=== PATIENT | male | born 1970 | race Caucasian/White ===

== ENCOUNTER 2024-04-13 00:59 | Inpatient (IN) | payer OTHER, MEDICAID ==
[~2024-04-13] VITALS: Ht 172.7 cm; Wt 85.5 kg
[2024-04-13] VITALS (13 sets, daily range): BP systolic 111–140; BP diastolic 48–83; PULSE 73–102; RESP 16–28; TEMP 97.2–98.4; O2SAT 97–99
[2024-04-13 01:26] LABS: BASOPHILS % 0.7 % (0.0-2.0); EOSINOPHILS % 3.4 % (0.0-5.0); HEMOGLOBIN. 16.6 g/dL (14.0-18.0); LYMPHOCYTES % 42.4 % (20.0-50.0); MEAN CORPUSCULAR HEMOGLOBIN 32.3 pg (28.0-32.0); MEAN CORPUSCULAR HGB CONC 33.9 g/dL (31.0-37.0); MEAN CORPUSCULAR VOLUME 95.3 fL (80.0-94.0); MEAN PLATELET VOLUME 7.8 fl (7.4-10.4); NEUTROPHILS % 45.5 % (40.0-76.0); PLATELET 327 x1000/uL (130-400); RED BLOOD CELL COUNT 5.14 mill/uL (4.7-6.1); RED CELL DISTRIBUTION WIDTH 13.1 % (11.6-14.6); WHITE BLOOD COUNT 10.4 x1000/uL (4.5-11.0)
[2024-04-13 01:35] LABS: CARBON DIOXIDE 22 mEq/L (21-32); CHLORIDE 104 mEq/L (98-107); POTASSIUM 3.6 mEq/L (3.5-5.1); SODIUM 138 mEq/L (136-145)
[2024-04-13 01:36] LABS: CALCIUM 8.9 mg/dL (8.7-10.4)
[2024-04-13 01:41] LABS: GLUCOSE 173 mg/dL (70-105); UREA NITROGEN BLOOD 9 mg/dL (9-23)
[2024-04-13] MEDS: NITROGLYCERIN 50MG PREMIX 250 ML IV ONE ×2 (02:09→02:41)
[2024-04-13 02:18] LABS: TROPONIN I HIGH SENSITIVITY 65 ng/L (3.0-53)
[2024-04-13] MEDS: CEFTRIAXONE 2GM/50ML 50 ML IV ONE (02:45)
[2024-04-13 02:55] LABS: INR 0.9; PARTIAL THROMBOPLASTIN TIME 27.3 sec (23.4-31.0); PROTHROMBIN TIME 10.5 sec (9.6-11.0)
[2024-04-13] MEDS: AZITHROMYCIN 500MG/250ML 250 ML IV STA (03:01)
[2024-04-13] MEDS: METHYLPREDNISOLONE SOD SUCC 125MG/2ML (ACT-O-VIAL) IV ONE (03:16)
[2024-04-13] MEDS: IPRATROPIUM/ALBUTEROL 0.5-3(2.5)MG/3ML NEB HHN ONE (03:23)
[2024-04-13] MEDS: ALBUTEROL (0.083%) 2.5MG/3ML NEB HHN ONE (03:24)
[2024-04-13 04:02] LABS: TROPONIN I HIGH SENSITIVITY 595 ng/L (3.0-53)
[2024-04-13 04:02] LABS: LACTIC ACID 4.5 mmol/L (0.4-2.0)
[2024-04-13 04:58] LABS: TROPONIN I HIGH SENSITIVITY 1127 ng/L (3.0-53)
[2024-04-13] MEDS ORDERED: MAGNESIUM/ALUMINUM HYDROXIDE/SIMETHICONE 30ML UDC PO PRN (05:00)
[2024-04-13] MEDS ORDERED: IPRATROPIUM/ALBUTEROL 0.5-3(2.5)MG/3ML NEB HHN PRN (05:00)
[2024-04-13] MEDS ORDERED: GUAIFENESIN 200MG/10ML SUGAR FREE UDC PO PRN (05:00)
[2024-04-13] MEDS ORDERED: DOCUSATE SODIUM 100MG CAPSULE PO PRN (05:00)
[2024-04-13] MEDS ORDERED: ONDANSETRON HCL 4MG/2ML INJ IV PRN (05:00)
[2024-04-13] MEDS ORDERED: HYDRALAZINE 20MG/ML VIAL IV PRN (05:15)
[2024-04-13] MEDS ORDERED: DEXTROSE 50% WATER 50ML SYRINGE IV PRN (05:15)
[2024-04-13 05:38] LABS: TRIGLYCERIDE 164 mg/dL (0-150)
[2024-04-13 05:39] LABS: LDL CHOLESTEROL 164 mg/dL (5-100)
[2024-04-13 05:40] LABS: CHOLESTEROL 207 mg/dL (<200); HDL CHOLESTEROL 44 mg/dL (>55); PHOSPHORUS 5.7 mg/dL (2.5-4.9)
[2024-04-13 05:42] LABS: T4 FREE 0.99 ng/dL (0.89-1.76); THYROID STIMULATING HORMONE 1.63 uIU/mL (0.55-4.78)
[2024-04-13 05:43] LABS: FOLIC ACID (FOLATE) SERUM > 20.00 ng/mL (>5.38)
[2024-04-13 05:44] LABS: VITAMIN B12 SERUM 423 pg/mL (211-911)
[2024-04-13] MEDS ORDERED: ASPIRIN 81MG TABLET PO ONE (06:00)
[2024-04-13] MEDS ORDERED: NITROGLYCERIN 0.4MG TABLET SL SL PRN (06:00)
[2024-04-13] MEDS: ENOXAPARIN 120MG/0.8ML SYR SUBCUT NR (06:25)
[2024-04-13] MEDS: CLOPIDOGREL 75MG TABLET PO NR (06:26)
[2024-04-13] MEDS: ASPIRIN 325MG EC TABLET PO NR (06:26)
[2024-04-13] MEDS: MAGNESIUM 2 G PREMIX 50 ML IV NR (06:26)
[2024-04-13] MEDS: ENOXAPARIN 120MG/0.8ML SYR SUBCUT ONE (06:30)
[2024-04-13] MEDS: IPRATROPIUM/ALBUTEROL 0.5-3(2.5)MG/3ML NEB HHN SCH (07:45)
[2024-04-13] MEDS: BLOOD SUGAR DIAGNOSTIC STRIP TEST SCH (08:18)
[2024-04-13 08:24] LABS: BG BASE EXCESS -2.3 mmol/L (-2.0-2.0); BG CARBOXYHEMOGLOBIN 1.1 % (0.5-1.5); BG DEOXYHEMOGLOBIN 4.5 % (0.0-5.0); BG FRACTION INSPIRED OXYGEN 36; BG HCO3 ACT 22.9 mmol/L (22.0-26.0); BG METHEMOGLOBIN 0.4 % (0.0-1.5); BG OXYGEN SATURATION 95.4 % (92.0-98.5); BG PCO2 40.9 mmHg (35.0-45.0); BG PH 7.366 (7.350-7.450); BG PO2 73.3 mmHg (75.0-100.0); BG SAMPLE SITE RIGHT RADIAL; BG TOTAL HEMOGLOBIN 17.1 g/dL (12.0-18.0); BG VENT MODE NASAL CANNULA
[2024-04-13] MEDS: INSULIN LISPRO 100 UNITS/ML SUBCUT SCH (08:25)
[2024-04-13 08:27] LABS: CLARITY URINE CLEAR (CLEAR); COLOR URINE YELLOW (YELLOW); GLUCOSE URINE NEGATIVE (NEGATIVE); KETONES URINE TRACE (NEGATIVE); LEUKOCYTE ESTERASE URINE NEGATIVE (NEGATIVE); NITRITE URINE NEGATIVE (NEGATIVE); OCCULT BLOOD URINE NEGATIVE (NEGATIVE); PH URINE 5.5 (4.5-8.0); PROTEIN URINE 3+ (NEGATIVE); SPECIFIC GRAVITY URINE 1.016 (1.005-1.030)
[2024-04-13] MEDS: FAMOTIDINE 20MG/2ML VIAL IV SCH (08:28)
[2024-04-13 08:42] LABS: CREATINE KINASE MB FRACTION 16.7 ng/mL (0.5-3.6)
[2024-04-13 08:43] LABS: BACTERIA URINE NONE SEEN; RBC URINE 0-2 /hpf (0-2); SQUAMOUS EPITHELIAL CELL URINE RARE /lpf (RARE/1+); WBC URINE 0-2 /hpf (0-2); YEAST URINE NONE SEEN
[2024-04-13 08:47] LABS: *AMPHETAMINES SCREEN URINE PRESUMPTIVE POSITIVE (NEGATIVE)
[2024-04-13 08:53] LABS: *BARBITURATES SCREEN URINE NEGATIVE (NEGATIVE)
[2024-04-13 08:54] LABS: *BENZODIAZEPINES SCREEN URINE NEGATIVE (NEGATIVE); *COCAINE SCREEN URINE NEGATIVE (NEGATIVE); METHADONE URINE SCREEN NEGATIVE (NEGATIVE)
[2024-04-13 08:55] LABS: CANNABINOID URINE SCREEN PRESUMPTIVE POSITIVE (NEGATIVE); ECSTASY MDMA SCREEN URINE CONF.TEST INDICATED (NEGATIVE); OPIATES URINE SCREEN NEGATIVE (NEGATIVE); PHENCYCLIDINE URINE SCREEN NEGATIVE (NEGATIVE)
[2024-04-13] MEDS: CLONIDINE 0.1MG TABLET PO PRN (10:03)
[2024-04-13] MEDS: AMLODIPINE 5MG TABLET PO NR (12:15)
[2024-04-13] MEDS ORDERED: METF-416 MT (14:31)
[2024-04-13] MEDS ORDERED: AMLO10TA80 MT (14:31)
[2024-04-13] MEDS: HYDRALAZINE HCL 25MG TABLET PO SCH (15:14)
[2024-04-13] MEDS: ATORVASTATIN CALCIUM 40MG TABLET PO SCH (21:16)
[2024-04-13] MEDS: ENOXAPARIN 150MG/ML SYR SUBCUT SCH (21:17)
[2024-04-13 21:34] LABS: CREATINE KINASE MB FRACTION 8.8 ng/mL (0.5-3.6)
[2024-04-13 21:48] LABS: HEPATITIS B SURFACE ANTIGEN NEGATIVE (Negative)
[2024-04-13 22:09] LABS: HEPATITIS C AB NON REACTIVE (Neg) (Negative)
[2024-04-14] VITALS (17 sets, daily range): BP systolic 99–162; BP diastolic 52–99; PULSE 92–117; RESP 15–29; TEMP 97.2–101; O2SAT 99
[2024-04-14 02:30] LABS: CREATINE KINASE MB FRACTION 6.7 ng/mL (0.5-3.6)
[2024-04-14 02:31] LABS: CREATINE KINASE 118 IU/L (46-171)
[2024-04-14 02:34] LABS: TROPONIN I HIGH SENSITIVITY 1029 ng/L (3.0-53)
[2024-04-14 04:18] LABS: CHLORIDE 103 mEq/L (98-107); SODIUM 134 mEq/L (136-145)
[2024-04-14 04:21] LABS: CALCIUM 8.9 mg/dL (8.7-10.4); CARBON DIOXIDE 20 mEq/L (21-32)
[2024-04-14 04:26] LABS: CREATININE 1.1 mg/dL (0.6-1.3); GLUCOSE 226 mg/dL (70-105); UREA NITROGEN BLOOD 19 mg/dL (9-23)
[2024-04-14 04:28] LABS: PHOSPHORUS 3.4 mg/dL (2.5-4.9)
[2024-04-14] MEDS: HYDRALAZINE HCL 100MG TABLET PO SCH (05:26)
[2024-04-14 07:26] LABS: BASOPHILS % 0.4 % (0.0-2.0); HEMATOCRIT. 44.1 % (42.0-52.0); HEMOGLOBIN. 15.1 g/dL (14.0-18.0); LYMPHOCYTES % 10.7 % (20.0-50.0); MEAN CORPUSCULAR HEMOGLOBIN 31.9 pg (28.0-32.0); MEAN CORPUSCULAR HGB CONC 34.2 g/dL (31.0-37.0); MEAN CORPUSCULAR VOLUME 93.2 fL (80.0-94.0); MONOCYTES % 7.1 % (2.0-8.0); NEUTROPHILS % 81.8 % (40.0-76.0); PLATELET 281 x1000/uL (130-400); RED BLOOD CELL COUNT 4.73 mill/uL (4.7-6.1); WHITE BLOOD COUNT 11.2 x1000/uL (4.5-11.0)
[2024-04-14] MEDS: AMLODIPINE 10MG TABLET PO SCH (09:29)
[2024-04-14] MEDS: ACETAMINOPHEN 325MG TABLET PO PRN (11:02)
[2024-04-14] MEDS ORDERED: IOHEXOL-350 100 ML BOTTLE ONE (11:54)
[2024-04-14] MEDS: INSULIN GLARGINE 100 UNITS/ML SUBCUT SCH (21:56)
[2024-04-15] VITALS (19 sets, daily range): BP systolic 105–154; BP diastolic 55–85; PULSE 87–135; RESP 15–27; TEMP 97.9–100; O2SAT 96–100
[2024-04-15] MEDS: LORAZEPAM 1MG TABLET PO PRN (01:03)
[2024-04-15] MEDS: LORAZEPAM 2MG/ML INJ IV NR (04:30)
[2024-04-15 06:54] LABS: BASOPHILS % 0.6 % (0.0-2.0); HEMATOCRIT. 42.1 % (42.0-52.0); HEMOGLOBIN. 14.8 g/dL (14.0-18.0); LYMPHOCYTES % 17.2 % (20.0-50.0); MEAN CORPUSCULAR HEMOGLOBIN 32.5 pg (28.0-32.0); MEAN CORPUSCULAR HGB CONC 35.3 g/dL (31.0-37.0); MEAN CORPUSCULAR VOLUME 92.1 fL (80.0-94.0); MEAN PLATELET VOLUME 8.2 fl (7.4-10.4); MONOCYTES % 11.9 % (2.0-8.0); NEUTROPHILS % 70.3 % (40.0-76.0); PLATELET 234 x1000/uL (130-400); RED BLOOD CELL COUNT 4.57 mill/uL (4.7-6.1); RED CELL DISTRIBUTION WIDTH 12.8 % (11.6-14.6); WHITE BLOOD COUNT 7.4 x1000/uL (4.5-11.0)
[2024-04-15 07:03] LABS: CALCIUM 8.9 mg/dL (8.7-10.4); CHLORIDE 98 mEq/L (98-107); POTASSIUM 3.9 mEq/L (3.5-5.1); SODIUM 130 mEq/L (136-145)
[2024-04-15 07:04] LABS: CARBON DIOXIDE 27 mEq/L (21-32)
[2024-04-15 07:09] LABS: GLUCOSE 149 mg/dL (70-105); UREA NITROGEN BLOOD 17 mg/dL (9-23)
[2024-04-15] MEDS ORDERED: LORAZEPAM 2MG/ML INJ IV PRN (08:00)
[2024-04-15] MEDS: ENOXAPARIN 80MG/0.8ML SYR SUBCUT SCH (21:18)
[2024-04-16] VITALS (15 sets, daily range): BP systolic 102–139; BP diastolic 57–82; PULSE 98–115; RESP 11–24; TEMP 97.5–98.2; O2SAT 95–100
[2024-04-16 05:22] LABS: CHLORIDE 98 mEq/L (98-107); POTASSIUM 3.9 mEq/L (3.5-5.1); SODIUM 129 mEq/L (136-145)
[2024-04-16 05:23] LABS: CALCIUM 9.1 mg/dL (8.7-10.4); CARBON DIOXIDE 24 mEq/L (21-32)
[2024-04-16 05:28] LABS: BASOPHILS % 0.4 % (0.0-2.0); CREATININE 0.8 mg/dL (0.6-1.3); EOSINOPHILS % 0.5 % (0.0-5.0); GLUCOSE 144 mg/dL (70-105); HEMATOCRIT. 41.4 % (42.0-52.0); HEMOGLOBIN. 14.6 g/dL (14.0-18.0); LYMPHOCYTES % 17.1 % (20.0-50.0); MEAN CORPUSCULAR HEMOGLOBIN 32.2 pg (28.0-32.0); MEAN CORPUSCULAR HGB CONC 35.3 g/dL (31.0-37.0); MEAN CORPUSCULAR VOLUME 91.3 fL (80.0-94.0); MEAN PLATELET VOLUME 7.6 fl (7.4-10.4); MONOCYTES % 12.6 % (2.0-8.0); NEUTROPHILS % 69.4 % (40.0-76.0); PLATELET 242 x1000/uL (130-400); RED BLOOD CELL COUNT 4.53 mill/uL (4.7-6.1); RED CELL DISTRIBUTION WIDTH 12.6 % (11.6-14.6); UREA NITROGEN BLOOD 11 mg/dL (9-23); WHITE BLOOD COUNT 8.7 x1000/uL (4.5-11.0)
[2024-04-16] MEDS ORDERED: LIP40 PO (09:34)
[2024-04-16] MEDS ORDERED: HYDR100T26 PO (09:34)
[2024-04-16] MEDS ORDERED: LORAZEPAM 1MG TABLET PO PRN (20:00)
== END 2024-04-16 17:45 | disposition home or self-care (01) | DRG 812 ==
LOC: ER 00:59 → EDBD 00:59 → 5EST 02:58 → EDBEDREQTM 03:02 → EDBEDREQ 03:02 → EDBEDREQSVC 10:26
PROVIDERS: ADMIT Internal Medicine; ATTEND Internal Medicine
PROC: 5A09357 Assistance with Respiratory Ventilation, Less than 24 Consecutive Hours, Continuous Positive Airway Pressure (ICD-10-PCS; principal; 2024-04-13)
DX: T43.621A Poisoning by amphetamines, accidental (unintentional), initial encounter (principal); J96.01 Acute respiratory failure with hypoxia; I21.4 Non-ST elevation (NSTEMI) myocardial infarction; I50.1 Left ventricular failure, unspecified; E78.5 Hyperlipidemia, unspecified; E87.20 Acidosis, unspecified; E83.39 Other disorders of phosphorus metabolism; I11.0 Hypertensive heart disease with heart failure; E11.65 Type 2 diabetes mellitus with hyperglycemia; E11.9 Type 2 diabetes mellitus without complications; T43.625A Adverse effect of amphetamines, initial encounter; E83.42 Hypomagnesemia; F15.10 Other stimulant abuse, uncomplicated; F17.210 Nicotine dependence, cigarettes, uncomplicated; I16.1 Hypertensive emergency; I25.10 Atherosclerotic heart disease of native coronary artery without angina pectoris; J44.9 Chronic obstructive pulmonary disease, unspecified; Z79.84 Long term (current) use of oral hypoglycemic drugs; Y92.89 Other specified places as the place of occurrence of the external cause
CPT/HCPCS: 36415; 36600; 71045; 71275; 80048; 80061; 80305; 81003; 82375; 82550; 82553; 82607; 82746; 82805; 82962; 83036; 83605; 83735; 83880; 84100; 84145; 84439; 84443; 84484; 85025; 86705; 87340; 93005; 93306; 93970; 94640; 94660; 99291; C1893; J0456; J0696; J1650; J1815; J2060; J2930; J3475; J3490; Q9967

== ENCOUNTER 2025-09-16 16:19 | Inpatient (IN) | payer MEDICAID, OTHER ==
[~2025-09-16] VITALS: Ht 175.3 cm; Wt 73.1 kg
[~2025-09-16 16:19] MED LIST: AMLO10TA80 MT; HYDR100T11 PO; LIP40 PO; METF-416 MT
[2025-09-16 16:43] VITALS: PULSE 117; RESP 19; O2SAT 99
[2025-09-16] MEDS: NALOXONE HCL 1MG/ML 2ML VIAL ONE (16:43)
[2025-09-16] MEDS: PROPOFOL 10MG/ML 100ML 100 ML IV SCH (16:44)
[2025-09-16 16:48] LABS: BASOPHILS % 0.6 % (0.0-2.0); EOSINOPHILS % 1.7 % (0.0-5.0); HEMATOCRIT. 49.8 % (42.0-52.0); HEMOGLOBIN. 16.2 g/dL (14.0-18.0); LYMPHOCYTES % 49.1 % (20.0-50.0); MEAN PLATELET VOLUME 8.1 fl (7.4-10.4); MONOCYTES % 7.6 % (2.0-8.0); NEUTROPHILS % 41.0 % (40.0-76.0); PLATELET 355 x1000/uL (130-400); RED BLOOD CELL COUNT 4.98 mill/uL (4.7-6.1); RED CELL DISTRIBUTION WIDTH 12.5 % (11.6-14.6)
[2025-09-16 17:00] LABS: INR 0.9
[2025-09-16 17:07] LABS: CREATININE 1.3 mg/dL (0.6-1.3); UREA NITROGEN BLOOD 13 mg/dL (9-23)
[2025-09-16 17:09] LABS: ASPARTATE AMINOTRANSFERASE 48 IU/L (<34); BILIRUBIN DIRECT < 0.1 mg/dL (<=3.0); BILIRUBIN TOTAL 0.3 mg/dL (0.1-1.0); PROTEIN TOTAL 7.7 g/dL (6.0-8.3)
[2025-09-16 17:20] LABS: TROPONIN I HIGH SENSITIVITY 136 ng/L (3.0-53)
[2025-09-16] MEDS: NICARDIPINE 50 MG in SODIUM CHLORIDE 0.9% 230 ML IV PRN (17:33)
[2025-09-16] MEDS: ENOXAPARIN 60MG/0.6ML SYR SUBCUT ONE (18:18)
[2025-09-16] MEDS: SODIUM CHLORIDE 0.9% 1,000 ML IV ONE ×2 (18:22→21:24)
[2025-09-16] MEDS: CEFTRIAXONE 1GM/50ML 50 ML IV ONE (18:38)
[2025-09-16 19:05] LABS: BG BASE EXCESS -2.5 mmol/L (-2.0-3.0); BG CARBOXYHEMOGLOBIN 2.6 % (0.5-1.5); BG DEOXYHEMOGLOBIN 0.5 % (0.0-5.0); BG FRACTION INSPIRED OXYGEN 100; BG HCO3 ACT 23.5 mmol/L (21.0-28.0); BG METHEMOGLOBIN 0.3 % (0.5-1.5); BG OXYGEN SATURATION 99.5 % (94.0-98.0); BG OXYHEMOGLOBIN 96.6 % (94.0-98.0); BG PCO2 45.1 mmHg (35.0-48.0); BG PEEP (cmH2O) 5.0 cmH2O; BG PH 7.335 (7.350-7.450); BG PO2 406.5 mmHg (83.0-108.0); BG SAMPLE SITE RIGHT RADIAL; BG TIDAL VOLUME(mL) 500.0 mL; BG TOTAL HEMOGLOBIN 15.9 g/dL (13.5-17.5); BG VENT MODE VENT - AC; BG VENT RATE 18.0 set
[2025-09-16 19:28] VITALS: PULSE 86; RESP 18; O2SAT 100
[2025-09-16 19:59] LABS: TROPONIN I HIGH SENSITIVITY 586 ng/L (3.0-53)
[2025-09-16] MEDS: PROPOFOL 10MG/ML 100ML 100 ML IV PRN (20:04)
[2025-09-16] MEDS ORDERED: CLONIDINE 0.1MG TABLET PO PRN (21:00)
[2025-09-16] MEDS ORDERED: ACETAMINOPHEN 650MG/20.3ML UDC GT PRN (21:00)
[2025-09-16] MEDS ORDERED: IPRATROPIUM/ALBUTEROL 0.5-3(2.5)MG/3ML NEB HHN PRN (21:00)
[2025-09-16] MEDS ORDERED: ONDANSETRON HCL 4MG/2ML INJ IV PRN (21:00)
[2025-09-16] MEDS ORDERED: FENTANYL 2500MCG/250ML PMX 250 ML IV PRN (21:00)
[2025-09-16] MEDS ORDERED: DOCUSATE SODIUM 100MG CAPSULE PO PRN (21:00)
[2025-09-16] MEDS: PIPERACILLIN/TAZO 3.375G/50ML 50 ML IV SCH (21:13)
[2025-09-16] MEDS ORDERED: DEXTROSE 50% WATER 50ML SYRINGE IV PRN (21:15)
[2025-09-16] MEDS: IPRATROPIUM/ALBUTEROL 0.5-3(2.5)MG/3ML NEB NEB SCH (21:16)
[2025-09-16] MEDS: ASPIRIN 81MG TABLET NG ONE (21:30)
[2025-09-16] MEDS ORDERED: PIPERACILLIN/TAZO 3.375G/50ML 50 ML IV SCH (22:00)
[2025-09-16] MEDS ORDERED: PROPOFOL 10MG/ML 100ML 100 ML IV PRN (22:00)
[2025-09-16] MEDS: VANCOMYCIN 1.25GM/250ML 250 ML IV NR (22:17)
[2025-09-16] MEDS: BLOOD SUGAR DIAGNOSTIC STRIP TEST SCH (22:23)
[2025-09-16 22:27] LABS: CREATINE KINASE MB FRACTION 5.5 ng/mL (0.5-3.6)
[2025-09-16 22:31] LABS: VITAMIN B12 SERUM 504 pg/mL (211-911)
[2025-09-16] MEDS: INSULIN LISPRO 100 UNITS/ML SUBCUT SCH (22:31)
[2025-09-16 22:32] LABS: PHOSPHORUS 3.0 mg/dL (2.5-4.9)
[2025-09-16 22:36] LABS: CLARITY URINE CLEAR (CLEAR); COLOR URINE YELLOW (YELLOW); GLUCOSE URINE 3+ (NEGATIVE); KETONES URINE NEGATIVE (NEGATIVE); LEUKOCYTE ESTERASE URINE NEGATIVE (NEGATIVE); NITRITE URINE NEGATIVE (NEGATIVE); OCCULT BLOOD URINE NEGATIVE (NEGATIVE); PH URINE 6.0 (4.5-8.0); PROTEIN URINE 2+ (NEGATIVE); SPECIFIC GRAVITY URINE 1.058 (1.005-1.030); UROBILINOGEN URINE 1.0 E.U./dL (0.2-1.0)
[2025-09-16 22:39] LABS: TROPONIN I HIGH SENSITIVITY 2761 ng/L (3.0-53)
[2025-09-16 22:50] LABS: FOLIC ACID (FOLATE) SERUM 16.95 ng/mL (>5.38)
[2025-09-16 22:55] LABS: BACTERIA URINE NONE SEEN; RBC URINE NONE SEEN /hpf (0-2); SQUAMOUS EPITHELIAL CELL URINE RARE /lpf (RARE/1+); WBC URINE 0-2 /hpf (0-2)
[2025-09-16 23:04] VITALS: PULSE 79; RESP 18; O2SAT 98
[2025-09-16 23:06] LABS: *AMPHETAMINES SCREEN URINE PRESUMPTIVE POSITIVE (NEGATIVE)
[2025-09-16 23:07] LABS: *BARBITURATES SCREEN URINE NEGATIVE (NEGATIVE); *BENZODIAZEPINES SCREEN URINE NEGATIVE (NEGATIVE); *COCAINE SCREEN URINE NEGATIVE (NEGATIVE); CANNABINOID URINE SCREEN NEGATIVE (NEGATIVE); ECSTASY MDMA SCREEN URINE NEGATIVE (NEGATIVE); METHADONE URINE SCREEN NEGATIVE (NEGATIVE); OPIATES URINE SCREEN NEGATIVE (NEGATIVE); PHENCYCLIDINE URINE SCREEN NEGATIVE (NEGATIVE)
[2025-09-17] VITALS (61 sets, daily range): BP systolic 111–158; BP diastolic 67–96; PULSE 72–85; RESP 0–21; TEMP 36.7–36.8072; O2SAT 99–100
[2025-09-17] MEDS: PANTOPRAZOLE SODIUM 40 MG/VIAL IV SCH (01:11)
[2025-09-17] MEDS: ENOXAPARIN 80MG/0.8ML SYR SUBCUT SCH (06:15)
[2025-09-17] MEDS: POTASSIUM CHLORIDE 20MEQ TABLET SR PO NR (06:15)
[2025-09-17 06:38] LABS: BASOPHILS % 0.3 % (0.0-2.0); EOSINOPHILS % 0.5 % (0.0-5.0); HEMATOCRIT. 40.9 % (42.0-52.0); HEMOGLOBIN. 14.0 g/dL (14.0-18.0); LYMPHOCYTES % 11.6 % (20.0-50.0); MEAN PLATELET VOLUME 8.3 fl (7.4-10.4); MONOCYTES % 6.1 % (2.0-8.0); NEUTROPHILS % 81.5 % (40.0-76.0); PLATELET 281 x1000/uL (130-400); RED BLOOD CELL COUNT 4.30 mill/uL (4.7-6.1); RED CELL DISTRIBUTION WIDTH 12.1 % (11.6-14.6)
[2025-09-17 07:06] LABS: CREATINE KINASE MB FRACTION 5.7 ng/mL (0.5-3.6)
[2025-09-17 07:10] LABS: T4 FREE 1.01 ng/dL (0.89-1.76)
[2025-09-17 07:11] LABS: CREATININE 0.8 mg/dL (0.6-1.3); TRIGLYCERIDE 529 mg/dL (0-150); UREA NITROGEN BLOOD 15 mg/dL (9-23)
[2025-09-17 07:12] LABS: LDL CHOLESTEROL 123 mg/dL (5-100)
[2025-09-17 07:13] LABS: ASPARTATE AMINOTRANSFERASE 40 IU/L (<34); BILIRUBIN TOTAL 0.3 mg/dL (0.1-1.0); PHOSPHORUS 2.3 mg/dL (2.5-4.9)
[2025-09-17 07:14] LABS: PROTEIN TOTAL 5.9 g/dL (6.0-8.3)
[2025-09-17 07:32] LABS: TROPONIN I HIGH SENSITIVITY 4618 ng/L (3.0-53)
[2025-09-17] MEDS ORDERED: VANCOMYCIN 750MG PREMIX 150 ML IV SCH (08:00)
[2025-09-17 08:46] LABS: BG BASE EXCESS -0.9 mmol/L (-2.0-3.0); BG CARBOXYHEMOGLOBIN 0.6 % (0.5-1.5); BG DEOXYHEMOGLOBIN 1.4 % (0.0-5.0); BG FRACTION INSPIRED OXYGEN 40; BG HCO3 ACT 22.7 mmol/L (21.0-28.0); BG METHEMOGLOBIN 0.3 % (0.5-1.5); BG OXYGEN SATURATION 98.6 % (94.0-98.0); BG OXYHEMOGLOBIN 97.7 % (94.0-98.0); BG PCO2 34.9 mmHg (35.0-48.0); BG PEEP (cmH2O) 5.0 cmH2O; BG PH 7.432 (7.350-7.450); BG PO2 119.1 mmHg (83.0-108.0); BG SAMPLE SITE RIGHT RADIAL; BG TIDAL VOLUME(mL) 500.0 mL; BG TOTAL HEMOGLOBIN 14.8 g/dL (13.5-17.5); BG VENT MODE VENT - AC; BG VENT RATE 18.0 set
[2025-09-17] MEDS: PROPOFOL 10MG/ML 100ML 100 ML IV SCH (09:06)
[2025-09-17] MEDS ORDERED: POTASSIUM CHLORIDE 20MEQ/PACKET NG ONE (09:30)
[2025-09-17] MEDS: ASPIRIN 81MG TABLET NG SCH (09:33)
[2025-09-17] MEDS: METHYLPREDNISOLONE SOD SUCC 40MG/ML (ACT-O-VIAL) IV SCH (09:34)
[2025-09-17] MEDS: INSULIN LISPRO 100 UNITS/ML SUBCUT SCH (10:00)
[2025-09-17] MEDS: BLOOD SUGAR DIAGNOSTIC STRIP TEST SCH (10:00)
[2025-09-17] MEDS: THIAMINE HCL 100MG TABLET PO SCH (11:17)
[2025-09-17] MEDS: FOLIC ACID 1MG TABLET PO SCH (11:17)
[2025-09-17] MEDS: MULTIVITAMINS,THER W-MINERALS TABLET PO SCH (11:18)
[2025-09-17] MEDS: VANCOMYCIN 750MG PREMIX 150 ML IV SCH (12:00)
[2025-09-17] MEDS: PIPERACILLIN/TAZO 3.375G/50ML 50 ML IV SCH (14:00)
[2025-09-17 19:31] LABS: CREATINE KINASE MB FRACTION 1.6 ng/mL (0.5-3.6)
[2025-09-17 19:38] LABS: TROPONIN I HIGH SENSITIVITY 2828 ng/L (3.0-53)
[2025-09-17] MEDS: ATORVASTATIN CALCIUM 40MG TABLET NG SCH (20:58)
[2025-09-18] VITALS (85 sets, daily range): BP systolic 86–162; BP diastolic 55–143; PULSE 56–94; RESP 0–25; TEMP 36.4–36.8; O2SAT 95–100
[2025-09-18] MEDS: MAGNESIUM 2 G PREMIX 50 ML IV NR (00:03)
[2025-09-18 00:25] LABS: CREATINE KINASE MB FRACTION 1.5 ng/mL (0.5-3.6)
[2025-09-18 00:31] LABS: TROPONIN I HIGH SENSITIVITY 2440 ng/L (3.0-53)
[2025-09-18] MEDS: POTASSIUM PHOSPHATE 20 MMOL in DEXT 5% WATER 243.3333 ML IV NR (02:27)
[2025-09-18 06:07] LABS: BASOPHILS % 0.1 % (0.0-2.0); EOSINOPHILS % 0.0 % (0.0-5.0); HEMATOCRIT. 40.2 % (42.0-52.0); HEMOGLOBIN. 13.7 g/dL (14.0-18.0); LYMPHOCYTES % 7.3 % (20.0-50.0); MEAN PLATELET VOLUME 8.5 fl (7.4-10.4); MONOCYTES % 4.5 % (2.0-8.0); NEUTROPHILS % 88.1 % (40.0-76.0); PLATELET 268 x1000/uL (130-400); RED BLOOD CELL COUNT 4.22 mill/uL (4.7-6.1); RED CELL DISTRIBUTION WIDTH 11.7 % (11.6-14.6)
[2025-09-18 06:17] LABS: CREATININE 0.7 mg/dL (0.6-1.3); TRIGLYCERIDE 234 mg/dL (0-150); UREA NITROGEN BLOOD 14 mg/dL (9-23)
[2025-09-18 06:20] LABS: PHOSPHORUS 3.7 mg/dL (2.5-4.9)
[2025-09-18] MEDS: FENTANYL 2500MCG/250ML PMX 250 ML IV PRN (08:12)
[2025-09-18] MEDS: INSULIN LISPRO 100 UNITS/ML SUBCUT SCH (08:30)
[2025-09-18] MEDS: PROPOFOL 10MG/ML 100ML 100 ML IV PRN (09:50)
[2025-09-18] MEDS ORDERED: MIDAZOLAM HCL 2 MG/2 ML VIAL ONE (10:03)
[2025-09-18] MEDS ORDERED: IODIXANOL 320 MG/ML 150ML BOTTLE IV ONE (10:04)
[2025-09-18] MEDS ORDERED: HEPARIN 1000 UNITS/ML 10ML ONE (10:04)
[2025-09-18] MEDS ORDERED: LIDOCAINE HCL 1% 20ML VIAL ONE (10:13)
[2025-09-18 10:17] LABS: BG BASE EXCESS -2.0 mmol/L (-2.0-3.0); BG CARBOXYHEMOGLOBIN 0.8 % (0.5-1.5); BG DEOXYHEMOGLOBIN 0.8 % (0.0-5.0); BG FRACTION INSPIRED OXYGEN 40; BG HCO3 ACT 21.7 mmol/L (21.0-28.0); BG METHEMOGLOBIN 0.3 % (0.5-1.5); BG OXYGEN SATURATION 99.2 % (94.0-98.0); BG OXYHEMOGLOBIN 98.1 % (94.0-98.0); BG PCO2 34.0 mmHg (35.0-48.0); BG PEEP (cmH2O) 5.0 cmH2O; BG PH 7.422 (7.350-7.450); BG PO2 191.2 mmHg (83.0-108.0); BG SAMPLE SITE RIGHT RADIAL; BG TIDAL VOLUME(mL) 500.0 mL; BG TOTAL HEMOGLOBIN 14.3 g/dL (13.5-17.5); BG VENT MODE VENT - AC; BG VENT RATE 18.0 set
[2025-09-18] MEDS: SODIUM CHLORIDE 0.45% 1,000 ML IV SCH (13:01)
[2025-09-18] MEDS ORDERED: HEPARIN 25,000 UNITS PREMIX 250 ML IV SCH (22:00)
[2025-09-18] MEDS: METHYLPREDNISOLONE SOD SUCC 40MG/ML (ACT-O-VIAL) IV SCH (22:21)
[2025-09-18] MEDS: INSULIN GLARGINE 100 UNITS/ML SUBCUT SCH (22:23)
[2025-09-18 23:15] LABS: INR 0.9
[2025-09-19] VITALS (90 sets, daily range): BP systolic 91–129; BP diastolic 57–87; PULSE 53–84; RESP 0–33; TEMP 36.4–36.8; O2SAT 98–100
[2025-09-19] MEDS: HEPARIN 25,000 UNITS PREMIX 250 ML IV SCH (06:27)
[2025-09-19 07:08] LABS: HEMATOCRIT. 35.8 % (42.0-52.0); HEMOGLOBIN. 12.3 g/dL (14.0-18.0); MEAN PLATELET VOLUME 8.7 fl (7.4-10.4); PLATELET 234 x1000/uL (130-400); RED BLOOD CELL COUNT 3.77 mill/uL (4.7-6.1); RED CELL DISTRIBUTION WIDTH 12.0 % (11.6-14.6)
[2025-09-19 07:35] LABS: CREATININE 0.7 mg/dL (0.6-1.3)
[2025-09-19 07:36] LABS: TRIGLYCERIDE 157 mg/dL (0-150); UREA NITROGEN BLOOD 14 mg/dL (9-23)
[2025-09-19] MEDS: BLOOD SUGAR DIAGNOSTIC STRIP TEST SCH (08:12)
[2025-09-19 09:56] LABS: BG BASE EXCESS -3.2 mmol/L (-2.0-3.0); BG CARBOXYHEMOGLOBIN 0.3 % (0.5-1.5); BG DEOXYHEMOGLOBIN 1.9 % (0.0-5.0); BG FRACTION INSPIRED OXYGEN 30; BG HCO3 ACT 20.0 mmol/L (21.0-28.0); BG METHEMOGLOBIN 0.3 % (0.5-1.5); BG OXYGEN SATURATION 98.1 % (94.0-98.0); BG OXYHEMOGLOBIN 97.5 % (94.0-98.0); BG PCO2 30.5 mmHg (35.0-48.0); BG PEEP (cmH2O) 5.0 cmH2O; BG PH 7.435 (7.350-7.450); BG PO2 110.4 mmHg (83.0-108.0); BG SAMPLE SITE RIGHT RADIAL; BG TIDAL VOLUME(mL) 500.0 mL; BG TOTAL HEMOGLOBIN 13.0 g/dL (13.5-17.5); BG TOTAL RESPIRATORY RATE 19 b/min; BG VENT MODE VENT - AC; BG VENT RATE 18.0 set
[2025-09-19 10:50] LABS: BAND% 6.0 % (1.0-6.0); LYMPHOCYTES % MANUAL 8.0 % (20.0-50.0); MONOCYTES % MANUAL 2.0 % (2.0-8.0); NEUTROPHILS % MANUAL 84.0 % (45.0-75.0); PLATELET ESTIMATE NORMAL
[2025-09-19] MEDS ORDERED: HEPARIN BOLUS PRN aPTT 30-44 IV (12:00)
[2025-09-19] MEDS: PROPOFOL 10MG/ML 100ML 100 ML IV PRN (13:04)
[2025-09-19] MEDS: ATORVASTATIN CALCIUM 40MG TABLET PO SCH (20:59)
[2025-09-20] VITALS (76 sets, daily range): BP systolic 96–164; BP diastolic 64–94; PULSE 52–97; RESP 0–25; TEMP 36.7–37.4; O2SAT 97–100
[2025-09-20 06:52] LABS: BASOPHILS % 0.1 % (0.0-2.0); EOSINOPHILS % 0.1 % (0.0-5.0); HEMATOCRIT. 35.1 % (42.0-52.0); HEMOGLOBIN. 12.0 g/dL (14.0-18.0); LYMPHOCYTES % 16.2 % (20.0-50.0); MEAN PLATELET VOLUME 8.4 fl (7.4-10.4); MONOCYTES % 9.1 % (2.0-8.0); NEUTROPHILS % 74.5 % (40.0-76.0); PLATELET 231 x1000/uL (130-400); RED BLOOD CELL COUNT 3.71 mill/uL (4.7-6.1); RED CELL DISTRIBUTION WIDTH 12.2 % (11.6-14.6)
[2025-09-20 07:00] LABS: CREATININE 0.8 mg/dL (0.6-1.3)
[2025-09-20 07:01] LABS: TRIGLYCERIDE 244 mg/dL (0-150); UREA NITROGEN BLOOD 15 mg/dL (9-23)
[2025-09-20] MEDS: HYDRALAZINE 20MG/ML VIAL IV PRN (08:49)
[2025-09-20 10:38] LABS: BG BASE EXCESS -3.7 mmol/L (-2.0-3.0); BG CARBOXYHEMOGLOBIN 0.4 % (0.5-1.5); BG DEOXYHEMOGLOBIN 1.7 % (0.0-5.0); BG FRACTION INSPIRED OXYGEN 30; BG HCO3 ACT 19.4 mmol/L (21.0-28.0); BG METHEMOGLOBIN 0.3 % (0.5-1.5); BG OXYGEN SATURATION 98.3 % (94.0-98.0); BG OXYHEMOGLOBIN 97.6 % (94.0-98.0); BG PCO2 29.7 mmHg (35.0-48.0); BG PEEP (cmH2O) 5.0 cmH2O; BG PH 7.432 (7.350-7.450); BG PO2 113.5 mmHg (83.0-108.0); BG SAMPLE SITE RIGHT RADIAL; BG TIDAL VOLUME(mL) 500.0 mL; BG TOTAL HEMOGLOBIN 13.3 g/dL (13.5-17.5); BG VENT MODE VENT - AC; BG VENT RATE 18.0 set
[2025-09-20] MEDS: NITROGLYCERIN 50MG PREMIX 250 ML IV PRN (12:14)
[2025-09-20 13:50] LABS: BG BASE EXCESS -5.3 mmol/L (-2.0-3.0); BG CARBOXYHEMOGLOBIN 0.2 % (0.5-1.5); BG DEOXYHEMOGLOBIN 1.9 % (0.0-5.0); BG FRACTION INSPIRED OXYGEN 30; BG HCO3 ACT 18.9 mmol/L (21.0-28.0); BG METHEMOGLOBIN 0.3 % (0.5-1.5); BG OXYGEN SATURATION 98.1 % (94.0-98.0); BG OXYHEMOGLOBIN 97.6 % (94.0-98.0); BG PCO2 32.7 mmHg (35.0-48.0); BG PEEP (cmH2O) 5.0 cmH2O; BG PH 7.379 (7.350-7.450); BG PO2 114.6 mmHg (83.0-108.0); BG SAMPLE SITE ALINE; BG TOTAL HEMOGLOBIN 13.8 g/dL (13.5-17.5); BG VENT MODE VENT - CPAP
[2025-09-21] VITALS (79 sets, daily range): BP systolic 108–157; BP diastolic 61–86; PULSE 69–99; RESP 11–35; TEMP 36.7–37.3; O2SAT 94–100
[2025-09-21] MEDS: HEPARIN BOLUS PRN aPTT <30 IV (01:45)
[2025-09-21 06:13] LABS: BASOPHILS % 0.1 % (0.0-2.0); EOSINOPHILS % 0.0 % (0.0-5.0); HEMATOCRIT. 34.1 % (42.0-52.0); HEMOGLOBIN. 11.8 g/dL (14.0-18.0); LYMPHOCYTES % 8.0 % (20.0-50.0); MEAN PLATELET VOLUME 8.4 fl (7.4-10.4); MONOCYTES % 6.2 % (2.0-8.0); NEUTROPHILS % 85.7 % (40.0-76.0); PLATELET 246 x1000/uL (130-400); RED BLOOD CELL COUNT 3.62 mill/uL (4.7-6.1); RED CELL DISTRIBUTION WIDTH 11.8 % (11.6-14.6)
[2025-09-21 06:27] LABS: CREATININE 0.7 mg/dL (0.6-1.3); UREA NITROGEN BLOOD 13 mg/dL (9-23)
[2025-09-21] MEDS: LOSARTAN 50 MG TABLET PO SCH (15:28)
[2025-09-21] MEDS: CARVEDILOL 6.25 MG TABLET PO SCH (21:08)
[2025-09-22] VITALS (66 sets, daily range): BP systolic 115–164; BP diastolic 57–89; PULSE 67–99; RESP 6–25; TEMP 36.7–36.8; O2SAT 94–99
[2025-09-22 07:19] LABS: BASOPHILS % 0.1 % (0.0-2.0); EOSINOPHILS % 0.0 % (0.0-5.0); HEMATOCRIT. 36.1 % (42.0-52.0); HEMOGLOBIN. 12.3 g/dL (14.0-18.0); LYMPHOCYTES % 8.7 % (20.0-50.0); MEAN PLATELET VOLUME 8.9 fl (7.4-10.4); MONOCYTES % 6.2 % (2.0-8.0); NEUTROPHILS % 85.0 % (40.0-76.0); PLATELET 262 x1000/uL (130-400); RED BLOOD CELL COUNT 3.82 mill/uL (4.7-6.1); RED CELL DISTRIBUTION WIDTH 11.7 % (11.6-14.6)
[2025-09-22 07:33] LABS: CREATININE 0.7 mg/dL (0.6-1.3); UREA NITROGEN BLOOD 11 mg/dL (9-23)
[2025-09-22] MEDS: INSULIN GLARGINE 100 UNITS/ML SUBCUT SCH (21:22)
[2025-09-23] VITALS (51 sets, daily range): BP systolic 99–184; BP diastolic 62–96; PULSE 66–95; RESP 11–24; TEMP 37.1–37.3; O2SAT 93–99
[2025-09-23 07:15] LABS: BASOPHILS % 0.2 % (0.0-2.0); EOSINOPHILS % 0.1 % (0.0-5.0); HEMATOCRIT. 40.1 % (42.0-52.0); HEMOGLOBIN. 14.0 g/dL (14.0-18.0); LYMPHOCYTES % 13.3 % (20.0-50.0); MEAN PLATELET VOLUME 9.1 fl (7.4-10.4); MONOCYTES % 4.8 % (2.0-8.0); NEUTROPHILS % 81.6 % (40.0-76.0); PLATELET 301 x1000/uL (130-400); RED BLOOD CELL COUNT 4.31 mill/uL (4.7-6.1); RED CELL DISTRIBUTION WIDTH 11.8 % (11.6-14.6)
[2025-09-23 07:22] LABS: CREATININE 0.7 mg/dL (0.6-1.3); UREA NITROGEN BLOOD 16 mg/dL (9-23)
[2025-09-23 12:11] LABS: CREATININE 0.8 mg/dL (0.6-1.3)
[2025-09-23 12:12] LABS: UREA NITROGEN BLOOD 19 mg/dL (9-23)
[2025-09-23 12:13] LABS: ASPARTATE AMINOTRANSFERASE 36 IU/L (<34)
[2025-09-23 12:14] LABS: BILIRUBIN TOTAL 0.4 mg/dL (0.1-1.0); PHOSPHORUS 3.4 mg/dL (2.5-4.9); PROTEIN TOTAL 6.0 g/dL (6.0-8.3)
[2025-09-23 12:22] LABS: TROPONIN I HIGH SENSITIVITY 60 ng/L (3.0-53)
[2025-09-23] MEDS: MORPHINE SULFATE 4 MG/ML INJ (FOR IV/IM USE) IV SCH (18:04)
[2025-09-23] MEDS: LACTULOSE 20G/30ML UDC PO SCH (21:30)
[2025-09-23] MEDS: BLOOD SUGAR DIAGNOSTIC STRIP TEST SCH (21:37)
[2025-09-23] MEDS: FUROSEMIDE 40MG/4ML VIAL IVP SCH (21:48)
[2025-09-23] MEDS: MAGNESIUM 2 G PREMIX 50 ML IV SCH (21:48)
[2025-09-24] VITALS: BP 145/74; PULSE 75; RESP 11; TEMP 36.8; O2SAT 97
[2025-09-24 04:00] VITALS: BP 157/75; PULSE 65; RESP 19; TEMP 36.7; O2SAT 96
[2025-09-24 06:40] LABS: BASOPHILS % 0.2 % (0.0-2.0); EOSINOPHILS % 1.0 % (0.0-5.0); HEMATOCRIT. 38.4 % (42.0-52.0); HEMOGLOBIN. 13.4 g/dL (14.0-18.0); LYMPHOCYTES % 20.3 % (20.0-50.0); MEAN PLATELET VOLUME 8.6 fl (7.4-10.4); MONOCYTES % 9.8 % (2.0-8.0); NEUTROPHILS % 68.7 % (40.0-76.0); PLATELET 330 x1000/uL (130-400); RED BLOOD CELL COUNT 4.13 mill/uL (4.7-6.1); RED CELL DISTRIBUTION WIDTH 11.9 % (11.6-14.6)
[2025-09-24] MEDS: INSULIN LISPRO 100 UNITS/ML SUBCUT SCH (06:53)
[2025-09-24 06:59] LABS: CREATININE 0.7 mg/dL (0.6-1.3); UREA NITROGEN BLOOD 16 mg/dL (9-23)
[2025-09-24 08:00] VITALS: BP 134/81; PULSE 68; RESP 15; TEMP 36.8; O2SAT 99
[2025-09-24] MEDS: IOHEXOL-350 100 ML BOTTLE ONE (09:15)
[2025-09-24] MEDS: POTASSIUM CHLORIDE 20MEQ TABLET SR PO SCH (10:09)
[2025-09-24] MEDS: METHYLPREDNISOLONE SOD SUCC 40MG/ML (ACT-O-VIAL) IV SCH (10:10)
[2025-09-24] MEDS: METOPROLOL TARTRATE 25MG TABLET PO SCH (10:10)
[2025-09-24] MEDS: FUROSEMIDE 40MG/4ML VIAL IVP SCH (10:11)
[2025-09-24 12:00] VITALS: BP 126/80; PULSE 75; RESP 15; TEMP 36.6; O2SAT 97
[2025-09-24 16:00] VITALS: BP 141/88; PULSE 87; RESP 20; TEMP 36.7; O2SAT 97
[2025-09-24 20:00] VITALS: BP 110/78; PULSE 89; RESP 16; TEMP 36.8; O2SAT 96
[2025-09-25] VITALS: BP 119/72; PULSE 78; RESP 18; TEMP 36.7; O2SAT 97
[2025-09-25 04:00] VITALS: BP 127/73; PULSE 84; RESP 19; TEMP 36.7; O2SAT 95
[2025-09-25 08:00] VITALS: BP_SYST 112; BP_SYST 161; BP_DIAS 81; BP_DIAS 86; PULSE 75; PULSE 98; RESP 19; RESP 28; TEMP 36.8; O2SAT 97; O2SAT 98
[2025-09-25] MEDS ORDERED: EPINEPHRINE 0.1MG/ML (1:10,000) 10ML SYR ONE (08:56)
[2025-09-25] MEDS ORDERED: VERAPAMIL HCL 2.5 MG/1 ML 2ML VIAL IV ONE (08:57)
[2025-09-25] MEDS ORDERED: IODIXANOL 320 MG/ML 150ML BOTTLE IV ONE (08:57)
[2025-09-25] MEDS ORDERED: ATROPINE SULFATE 1MG/10ML SYR ONE (08:57)
[2025-09-25] MEDS ORDERED: LIDOCAINE HCL 1% 20ML VIAL ONE (08:57)
[2025-09-25] MEDS ORDERED: HEPARIN 1000 UNITS/ML 10ML ONE ×3 (08:57→11:13)
[2025-09-25] MEDS: CLOPIDOGREL 75MG TABLET PO NR (10:00)
[2025-09-25 10:10] LABS: BASOPHILS % 0.2 % (0.0-2.0); EOSINOPHILS % 1.3 % (0.0-5.0); HEMATOCRIT. 40.0 % (42.0-52.0); HEMOGLOBIN. 13.7 g/dL (14.0-18.0); LYMPHOCYTES % 21.7 % (20.0-50.0); MEAN PLATELET VOLUME 8.0 fl (7.4-10.4); MONOCYTES % 10.6 % (2.0-8.0); NEUTROPHILS % 66.2 % (40.0-76.0); PLATELET 338 x1000/uL (130-400); RED BLOOD CELL COUNT 4.24 mill/uL (4.7-6.1); RED CELL DISTRIBUTION WIDTH 12.3 % (11.6-14.6)
[2025-09-25] MEDS ORDERED: CLOPIDOGREL 75MG TABLET ONE (10:13)
[2025-09-25] MEDS ORDERED: MIDAZOLAM HCL 2 MG/2 ML VIAL ONE (10:25)
[2025-09-25] MEDS ORDERED: FENTANYL CITRATE/PF 50MCG/ML 2ML VIAL ONE (10:26)
[2025-09-25 10:30] LABS: CREATININE 0.8 mg/dL (0.6-1.3)
[2025-09-25 10:31] LABS: UREA NITROGEN BLOOD 19 mg/dL (9-23)
[2025-09-25] MEDS ORDERED: IODIXANOL 320MG/ML 100 ML BOTTLE IV ONE (11:48)
[2025-09-25] MEDS ORDERED: ASPIRIN 81MG TABLET ONE (12:11)
[2025-09-25] MEDS: SODIUM CHLORIDE 0.45% 1,000 ML IV SCH (14:28)
[2025-09-25 16:00] VITALS: BP 136/74; PULSE 82; RESP 15; TEMP 36.8; O2SAT 100
[2025-09-25 20:00] VITALS: BP 150/88; PULSE 96; RESP 18; TEMP 36.9; O2SAT 98
[2025-09-26] VITALS: BP 113/83; PULSE 74; RESP 24; TEMP 36.8; O2SAT 100
[2025-09-26 04:00] VITALS: BP 139/80; PULSE 79; RESP 17; TEMP 36.7; O2SAT 99
[2025-09-26 06:55] LABS: BASOPHILS % 0.1 % (0.0-2.0); EOSINOPHILS % 1.1 % (0.0-5.0); HEMATOCRIT. 38.5 % (42.0-52.0); HEMOGLOBIN. 13.2 g/dL (14.0-18.0); LYMPHOCYTES % 19.5 % (20.0-50.0); MEAN PLATELET VOLUME 8.1 fl (7.4-10.4); MONOCYTES % 9.1 % (2.0-8.0); NEUTROPHILS % 70.2 % (40.0-76.0); PLATELET 363 x1000/uL (130-400); RED BLOOD CELL COUNT 4.10 mill/uL (4.7-6.1); RED CELL DISTRIBUTION WIDTH 12.2 % (11.6-14.6)
[2025-09-26 07:28] LABS: CREATININE 0.8 mg/dL (0.6-1.3)
[2025-09-26 07:29] LABS: UREA NITROGEN BLOOD 20 mg/dL (9-23)
[2025-09-26 08:00] VITALS: BP 138/78; PULSE 76; RESP 17; TEMP 37.1; O2SAT 100
[2025-09-26] MEDS: CLOPIDOGREL 75MG TABLET PO SCH (10:36)
[2025-09-26 12:00] VITALS: BP 108/71; PULSE 77; RESP 20; TEMP 36.9; O2SAT 100
[2025-09-26] MEDS: INSULIN LISPRO 100 UNITS/ML SUBCUT SCH (14:15)
[2025-09-26 16:00] VITALS: BP 99/63; PULSE 80; RESP 14; TEMP 37; O2SAT 100
[2025-09-26] MEDS ORDERED: METO25TA6 PO (16:33)
[2025-09-26] MEDS ORDERED: FURO40TA5 MT (16:33)
[2025-09-26] MEDS ORDERED: LIP40 PO (16:33)
[2025-09-26] MEDS ORDERED: CLOP-31 PO (16:33)
[2025-09-26] MEDS ORDERED: METF-416 MT (16:33)
[2025-09-26] MEDS ORDERED: METH4TAB95 MT (16:33)
[2025-09-26] MEDS ORDERED: LANTUSUD SUBCUT (16:33)
[2025-09-26] MEDS ORDERED: ASPI-1160 NG (16:33)
[2025-09-26 20:00] VITALS: BP 138/77; PULSE 85; RESP 14; TEMP 36.7; O2SAT 98
[2025-09-26] MEDS ORDERED: INSULIN GLARGINE 100 UNITS/ML SUBCUT SCH (22:00)
== END 2025-09-26 20:22 | disposition home or self-care (01) | DRG 710 ==
LOC: ER 16:19 → MICUSO 19:04 → EDBEDREQ 19:37 → EDBEDREQTM 19:37 → ENRESERV 22:38 → CVICU 09-19 01:25 → 3WST 09-24 01:18
PROVIDERS: ADMIT Internal Medicine; ATTEND Internal Medicine
PROC: 5A1955Z Respiratory Ventilation, Greater than 96 Consecutive Hours (ICD-10-PCS; principal; 2025-09-16)
PROC: 0BH17EZ Insertion of Endotracheal Airway into Trachea, Via Natural or Artificial Opening (ICD-10-PCS; 2025-09-16)
PROC: 4A023N7 Measurement of Cardiac Sampling and Pressure, Left Heart, Percutaneous Approach (ICD-10-PCS; 2025-09-19)
PROC: B211YZZ Fluoroscopy of Multiple Coronary Arteries using Other Contrast (ICD-10-PCS; 2025-09-19)
PROC: 027135Z Dilation of Coronary Artery, Two Arteries with Two Drug-eluting Intraluminal Devices, Percutaneous Approach (ICD-10-PCS; 2025-09-25)
PROC: B240ZZ3 Ultrasonography of Single Coronary Artery, Intravascular (ICD-10-PCS; 2025-09-25)
DX: A41.9 Sepsis, unspecified organism (principal); G93.1 Anoxic brain damage, not elsewhere classified; I46.9 Cardiac arrest, cause unspecified; J69.0 Pneumonitis due to inhalation of food and vomit; R57.8 Other shock; J96.01 Acute respiratory failure with hypoxia; G92.8 Other toxic encephalopathy; E11.65 Type 2 diabetes mellitus with hyperglycemia; I11.0 Hypertensive heart disease with heart failure; F10.10 Alcohol abuse, uncomplicated; I77.1 Stricture of artery; F19.10 Other psychoactive substance abuse, uncomplicated; I65.23 Occlusion and stenosis of bilateral carotid arteries; E87.20 Acidosis, unspecified; D75.89 Other specified diseases of blood and blood-forming organs; I21.A1 Myocardial infarction type 2; I50.22 Chronic systolic (congestive) heart failure; E87.6 Hypokalemia; E83.42 Hypomagnesemia; E83.39 Other disorders of phosphorus metabolism; T50.991A Poisoning by other drugs, medicaments and biological substances, accidental (unintentional), initial encounter; F17.200 Nicotine dependence, unspecified, uncomplicated; M48.02 Spinal stenosis, cervical region; I25.10 Atherosclerotic heart disease of native coronary artery without angina pectoris; E78.00 Pure hypercholesterolemia, unspecified; F17.210 Nicotine dependence, cigarettes, uncomplicated; I25.2 Old myocardial infarction; Z79.01 Long term (current) use of anticoagulants; Z82.49 Family history of ischemic heart disease and other diseases of the circulatory system; Z95.1 Presence of aortocoronary bypass graft; Y92.89 Other specified places as the place of occurrence of the external cause
CPT/HCPCS: 31500; 31720; 36415; 36600; 70496; 70498; 71045; 80048; 80053; 80061; 80076; 80305; 80320; 81003; 82010; 82140; 82306; 82375; 82550; 82553; 82607; 82746; 82805; 82962; 83036; 83605; 83735; 83880; 83930; 84100; 84145; 84439; 84443; 84478; 84484; 85025; 85347; 85379; 87070; 92928; 92929; 92978; 93005; 93306; 93454; 93458; 93970; 94002; 94003; 94060; 94070; 94640; 94664; 96365; 96372; 98960; 99291; 99292; A4606; C1725; C1726; C1753; C1769; C1874; C1887; C1893; J0360; J0461; J0696; J1644; J1650; J1815; J1938; J2003; J2250; J2270; J2312; J2470; J2543; J2704; J2919; J3010; J3373; J3475; J3490; J7030; J7060; Q9967; G0480